=== PATIENT | female | born 1965 | race Caucasian/White ===

== ENCOUNTER 2017-01-04 20:49 | Emergency (ER) | payer OTHER ==
[~2017-01-04] VITALS: Ht 165.1 cm; Wt 56.1 kg
[2017-01-04 21:48] LABS: HEMATOCRIT 44.9 % (34.6-47.8); WHITE BLOOD COUNT 14.7 x10^3/uL (3.4-10)
[2017-01-04 21:56] LABS: ASPARTATE AMINO TRANSFERASE 18 U/L (15-37); BLOOD UREA NITROGEN 20 mg/dL (7-18)
[2017-01-04] MEDS ORDERED: SODIUM CHLORIDE 0.9% 1,000ML IVBOLUS ONE (22:00)
[2017-01-04] MEDS ORDERED: ONDANSETRON 2MG/ML, 2ML IVPush ONE (22:00)
[2017-01-04] MEDS ORDERED: SODIUM CHLORIDE FLUSH 10ML SYR IVF ONE (22:00)
[2017-01-04] MEDS ORDERED: LORazepam 1MG TABLET ONE (22:08)
[2017-01-04] MEDS ORDERED: ONDANSETRON 2MG/ML, 2ML ONE (22:09)
[2017-01-04] MEDS ORDERED: HYDROmorphone 1 MG/ML, 1ML ONE ×2 (22:09→23:55)
[2017-01-04] MEDS: HYDROmorphone 1 MG/ML, 1ML IVPush PRN (22:24)
[2017-01-04] MEDS ORDERED: ALPR-475 PO (22:44)
[2017-01-05] MEDS: HYDROmorphone 1 MG/ML, 1ML IVPush PRN (00:09)
[2017-01-05 00:11] VITALS: BP 99/65
== END 2017-01-05 00:19 | disposition home or self-care (01) ==
LOC: ED 23:42
DX: K80.20 Calculus of gallbladder without cholecystitis without obstruction (principal); D72.829 Elevated white blood cell count, unspecified
CPT/HCPCS: 36415; 74177; 76700; 80053; 81003; 83690; 85025; 96361; 96374; 96375; 96376; 99285; J1170; J2405; J7030